=== PATIENT | male | born 1970 | race American Indian/Alaskan Native ===

== ENCOUNTER 2016-09-01 08:17 | Emergency (ER) | payer MEDICARE ==
[2016-09-01 09:02] VITALS: BP 157/112
[2016-09-01] MEDS ORDERED: NORCO 5/325 PO ONE (10:29)
[2016-09-01] MEDS ORDERED: MOTRIN PO ONE (10:29)
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
--- NOTE | 2016-09-01 11:25 | XRay Report ---
THORACIC SPINE: History: Back pain. The bones are normally mineralized with well preserved vertebral height, alignment and interspace distances. No paraspinal soft tissue widening is noted. IMPRESSION: Normal study.
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
== END 2016-09-01 12:37 | disposition home or self-care (01) ==
LOC: ED 08:17
DX: S16.1XXA Strain of muscle, fascia and tendon at neck level, initial encounter (principal); M54.89 Other dorsalgia; I10 Essential (primary) hypertension; F17.210 Nicotine dependence, cigarettes, uncomplicated; V89.2XXA Person injured in unspecified motor-vehicle accident, traffic, initial encounter; Y93.89 Activity, other specified; Y92.89 Other specified places as the place of occurrence of the external cause; Y99.8 Other external cause status
CPT/HCPCS: 72070; 72125; 99284